=== PATIENT | male | born 1965 | race Caucasian/White ===

== ENCOUNTER 2019-03-17 13:11 | Emergency (ER) | payer MEDICAID, OTHER ==
[~2019-03-17] VITALS: Ht 177.8 cm; Wt 81.6 kg
[2019-03-17 17:24] VITALS: BP 110/71
[2019-03-17] MEDS ORDERED: cefTRIAXone SOD 1,000 MG VL IM ONE (17:30)
[2019-03-17] MEDS ORDERED: KETOROLAC TROMETH 60MG/2ML VIAL IM ONE (17:30)
== END 2019-03-17 18:14 | disposition home or self-care (01) ==
LOC: ER 13:11
DX: L03.032 Cellulitis of left toe (principal); Z88.5 Allergy status to narcotic agent
CPT/HCPCS: 96372; 99283; J0696; J1885

== ENCOUNTER 2020-02-16 07:18 | Emergency (ER) | payer MEDICARE, MEDICAID ==
[~2020-02-16] VITALS: Ht 177.8 cm; Wt 74.8 kg
[2020-02-16 09:04] VITALS: BP 107/64
== END 2020-02-16 09:47 | disposition home or self-care (01) ==
LOC: ER 07:18
DX: L03.032 Cellulitis of left toe (principal); Z86.73 Personal history of transient ischemic attack (TIA), and cerebral infarction without residual deficits; Z88.6 Allergy status to analgesic agent